=== PATIENT | female | born 1965 | race Hispanic/Latino ===

== ENCOUNTER 2016-11-07 09:35 | Day surgery (SDC) | payer BC, OTHER ==
[2016-11-05 14:27] VITALS: BMI 37.5
[2016-11-07] MEDS ORDERED: Lactated Ringer's 1,000 ML IV ONE ×3 (10:03→12:15)
[2016-11-07] MEDS ORDERED: Midazolam 2 MG/2 ML VIAL ONE (10:13)
[2016-11-07] MEDS ORDERED: Propofol 10 mg/ml Inj (20 ML) ONE (10:13)
[2016-11-07] MEDS ORDERED: HYDROmorphone 0.5 mg/0.5 ml ISec IVP PRN (11:02)
--- NOTE | 2016-11-07 11:15 | PCM.SURG1 ---
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 1.5cm, removed, endometrial polyp, submucosal myoma protuding atnerior into cavity, bilateral ostia visulalied Post-Operative Diagnosis: same as above, endometrial polyp, submucosal myoma, cervical mass Operation Performed: Hysteroscopic myomectomy, fractional dilatoin and currettage, endometrial polypectomy, cervical biopsy Specimen/Specimens Removed: endocervical currettings, endometrial currettings, submucosal myoma, endometrial polyp, cervical mass Estimated Blood Loss: EBL {In ML}: 20 Blood Products Given: N/A Drains Used: No Drains Post-Op Condition: Good Date of Surgery/Procedure: 11/07/16 Time of Surgery/Procedure: 10:30
[2016-11-07 11:30] VITALS: O2SAT 100
--- NOTE | 2016-11-07 12:25 | OP ---
PROCEDURE DATE: 11/07/2016 SURGEON: Dr. Chiquita Sarabia DEVELOPMENT REPRESENTATIVE: None. ANESTHESIA: General LMA. PREOPERATIVE DIAGNOSES: Postmenopausal bleeding, thickened endometrium on ultrasound. POSTOPERATIVE DIAGNOSES: Postmenopausal bleeding, thickened endometrium on ultrasound, endometrial p olyps, submucosal myoma, cervical mass. OPERATIVE FINDINGS: Anteverted 10 week size uterus, no adnexal masses, cervical horseshoe mass anter ior on the cervix 1.5 cm, removed. Endometrial polyps, submucosal myoma protruding anterior into cav ity. Bilateral ostia visualized. OPERATION PERFORMED: Hysteroscopic myomectomy, fractional dilation and curettage, endometrial polype ctomy, cervical biopsy. SPECIMEN REMOVED: Endocervical curettings, endometrial curettings, submucosal myoma, endometrial salome yp, cervical mass. ESTIMATED BLOOD LOSS: 20 mL. BLOOD PRODUCTS: None. COMPLICATIONS: None. URINE OUTPUT: 30 mL of clear yellow urine. The patient was taken to the operating room where she was given general anesthesia. Once this was fo und be adequate, she was positioned on the operating table in dorsal supine position with legs suppor jimbo using stirrups. The patient was then prepped and draped in usual normal fashion and a timeout wa s done, confirmed correct patient and correct procedure. Bimanual exam was performed with above-ment ioned findings. Red rubber catheter was inserted in the urethra to drain the bladder. Rizvi retracto r was placed in the anterior, posterior fornix of vagina. The cervix was adequately visualized. A s jovanni tooth tenaculum was placed on the anterior lip of the cervix and superior to that, there was a horseshoe mass noted to be superior to that. Endocervical curettings were obtained and sent to patho logy on [facility]. The uterus was then sounded to 9 cm. Following this, the cervix was sequentially dil ated to allow for introduction of the MyoSure hysteroscope under direct visualization using normal sa line as the distention media. Bilateral ostia were visualized in addition to submucosal myoma noted to be protruding in the cavity and endometrial polypoid tissue noted as well. The MyoSure device was then inserted under direct visualization and the submucosal myoma was carefully resected. Following this, a gentle curettage was done. An endometrial polyp was removed. Endometrial curettage was don e 360 degrees until a gritty texture was noted and the endometrial curettings were sent to pathology on [facility]. The hysteroscope was then reintroduced and there was good removal of the myoma and endomet rial polyp. Following this, the cervical mass was biopsied in entirety and sent to pathology on a. There was bleeding noted at the cervical biopsy site, so a 2-[address] needle was used to obtain hemostasis. Hemostasis was improved; however, there was still some oozing noted. Pressure w as applied for 5 minutes. Following this, the site was noted to be oozing. Pressure was applied aga in. Following this, Bovie was used to help cauterize the area of oozing and there was good hemostasi s noted after this. All instruments were removed. At the end of the procedure, all needle, sponge a nd instrument counts were noted to be correct x 2. The patient tolerated the procedure well and was transferred to the recovery room in stable condition. Chiquita Sarabia MD cc: [id number] TT: 11/07/2016 12:24:31 en
[2016-11-07 12:53] VITALS: BP 130/70; PULSE 72; RESP 18; TEMP 97.7
== END 2016-11-07 12:54 | disposition home or self-care (01) ==
LOC: C.SDS 09:35
PROVIDERS: ATTEND Obstetrics & Gynecology
DX: D25.0 Submucous leiomyoma of uterus (principal); N95.0 Postmenopausal bleeding; N84.0 Polyp of corpus uteri
CPT/HCPCS: 58558; 88305; J2250; J2704; J3010; J7120